=== PATIENT | male | born 1995 | race Caucasian/White ===

== ENCOUNTER 2024-10-02 23:56 | Emergency (ER) | payer OTHER ==
[~2024-10-02] VITALS: Ht 188 cm; Wt 81.7 kg
[2024-10-03] MEDS ORDERED: DiphenhydrAMINE HCl 50 MG/ML 1ML Vial IV ONE (01:00)
[2024-10-03] MEDS ORDERED: NS 1,000 ML IV SCH (01:00)
[2024-10-03] MEDS ORDERED: Dexamethasone Sod Phos 10 MG/ML 1ML VIAL IV ONE (01:00)
[2024-10-03] MEDS ORDERED: Ketorolac Tromethamine 30mg Vial IV ONE (01:00)
== END 2024-10-03 03:00 | disposition home or self-care (01) ==
LOC: ER 23:56
DX: G43.909 Migraine, unspecified, not intractable, without status migrainosus (principal)
CPT/HCPCS: 96374; 96375; 99283; J1100; J1200; J1885; J7030